=== PATIENT | female | born 1965 | race Caucasian/White ===

== ENCOUNTER → 2017-05-16 | Outpatient (CLI) | payer OTHER ==
[~2017-05-16] VITALS: Ht 157.5 cm; Wt 61.2 kg
== END | disposition home or self-care (01) ==
LOC: AMB 08:28
PROC: 0DBK8ZX Excision of Ascending Colon, Via Natural or Artificial Opening Endoscopic, Diagnostic (ICD-10-PCS; principal; 2017-05-16)
DX: Z12.11 Encounter for screening for malignant neoplasm of colon (principal); D12.2 Benign neoplasm of ascending colon; K64.8 Other hemorrhoids; Z87.19 Personal history of other diseases of the digestive system; Z98.51 Tubal ligation status; Z80.3 Family history of malignant neoplasm of breast; Z83.3 Family history of diabetes mellitus; Z88.0 Allergy status to penicillin
CPT/HCPCS: 88305; J2250

== ENCOUNTER 2017-10-17 18:09 | Emergency (ER) | payer OTHER ==
[~2017-10-17] VITALS: Ht 157.5 cm; Wt 63.2 kg
[2017-10-17] MEDS ORDERED: NORCO 5/3251 TABLET PO (19:53)
[2017-10-17 20:26] VITALS: BP 129/90
== END 2017-10-17 20:27 | disposition home or self-care (01) ==
LOC: EME 18:09
DX: S62.102A Fracture of unspecified carpal bone, left wrist, initial encounter for closed fracture (principal); S80.211A Abrasion, right knee, initial encounter; W01.0XXA Fall on same level from slipping, tripping and stumbling without subsequent striking against object, initial encounter; Z87.891 Personal history of nicotine dependence
CPT/HCPCS: 73110; 99281; 99283